=== PATIENT | female | born 2000 | race Caucasian/White ===

== ENCOUNTER 2022-12-10 19:27 | Emergency (ER) | payer MEDICAID, SELFPAY ==
[2022-12-10 19:57] VITALS: BP 130/77; PULSE 92; RESP 16; TEMP 36.3; O2SAT 98; BMI 46.3
--- NOTE | 2022-12-10 19:59 | ED_ITS ---
HPI - URI/Sore Throat General Chief Complaint: Upper Respiratory Symptoms Stated Complaint: sore throat Time Seen by Provider: 12/10/22 19:58 Source: patient, RN notes reviewed and old records reviewed Mode of arrival: ambulatory History of Present Illness HPI Narrative: 22-year-old female with no significant past medical history presenting to the ED complaining of sore throat, chills, subjective fever, mild headache, fatigue x 2 days. Reports pain with swallowing. Denies ear pain, difficulty/inability to swallow, SOB/CP, sick contacts, recent travel MD elicited complaint: fever, cough and sore throat Related Data Previous Rx's Medication Instructions Recorded penicillin V potassium 500 mg 500 mg PO BID 10 days #20 tabs 12/10/22 tablet Allergies Allergy/AdvReac Type Severity Reaction Status Date / Time No Known Allergies Allergy Verified 12/10/22 19:57 Review of Systems Review of Systems: Constitutional: +subj Fever, No Chills ENT/Mouth: No Ear Pain, No Nasal Congestion, No Sinus Pain, No Hoarseness, + so re throat, + Rhinorrhea, No Swallowing Difficulty Cardiovascular: No Chest Pain, No SOB Respiratory: + Cough, No Sputum, No Wheezing Gastrointestinal: No Nausea, No Vomiting, No Diarrhea, No Constipation, No Abdominal pain Genitourinary: No Dysuria, No Urinary Frequency, No Flank Pain Musculoskeletal: No joint pain, No Myalgias, No Joint Swelling Skin: No Skin Lesions, No rash Neuro: No Weakness Yes all other systems are reviewed and are negative Constitutional: Constitutional: Reports as per [facility] Past Medical History Attestation statement: The following information was validated with the patient. Source: old records reviewed Social History Social History Advance Directives: No Advance Directives Information Provided: No Physical Exam Vital Signs: Vital Signs: Last Vital Signs Temp 97.4 F 12/10/22 19:57 Pulse 92 12/10/22 19:57 Resp 16 12/10/22 19:57 BP 130/77 12/10/22 19:57 Pulse Ox 98 12/10/22 19:57 O2 Del Method Room Air 12/10/22 19:57 BMI result Body Mass Index 46.3 Const: General: cooperative, healthy appearing and no acute distress Orientation/consciousness: patient oriented x3 Limitations: no limitations HEENT: Head: Yes normal to inspection and Yes atraumatic Ears: hearing grossly normal bilaterally, external ears normal, TM's normal bilaterally and mastoids normal General nose exam: Normal external nose present Face and sinus: Yes normal facial exam Throat: Yes uvula midline, Yes abnormal tonsil (+ exudates), No peritonsillar mass, Yes posterior oropharynx abnormal (Erythematous), No uvula laterally displaced and No uvular edema Eyes: General: appearance normal, both eyes and all related structures EOM: EOMs intact bilaterally Neck: Neck: Yes normal visual inspection and Yes no meningeal signs Resp: Effort & Inspection: normal respiratory effort, no respiratory distress and no stridor Auscultation: clear to auscultation bilaterally Cardio: Rate: regular rate Heart sounds: S1 normal heart sound present and S2 normal heart sound present Skin: Rashes: no rashes Wounds: no wounds Neuro: General: patient oriented x3, tone normal and no meningeal signs Gait exam (Neuro): Normal gait present Extrem: General: Yes normal to inspection Course Course Course Narrative: -2029--COVID/flu and rapid strep negative > although patient clinically with strep pharyngitis will treat with antibiotics Results discussed with patient including worrisome signs and symptoms and strict return precautions, and when to return to the emergency department. They verbalized understanding and feel safe for discharge at this time. Medical Decision Making Medical Decision Making [facility] Narrative: 22-year-old female with no significant past medical history presenting to the ED complaining of sore throat, chills, subjective fever, mild headache, fatigue x 2 days. On exam vital signs stable, NAD, nontoxic appearing, posterior oropharynx mildly erythematous, with tonsillar exudates noted. Uvula midline, no evidence of [employer]. Handling secretions, talking in complete sentences. Concern for strep pharyngitis vs viral syndrome. No evidence of [employer], otitis, mastoiditis Plan: COVID/flu, rapid strep Please refer to course for remaining clinical decision making, interpretation of labs/imaging results, and discussions with consultants and/or family members. Differential Diagnosis Differential Diagnoses: The differential diagnosis associated with the presentation includes As above Admission/Observation Consideration of admission/observation: Escalation of care including admission/observation considered Lab Data [facility] Lab Attestation statement: I reviewed the patient's lab results. Labs: Lab Results 12/10/22 12/10/22 12/10/22 Range/Units 20:00 20:00 20:00 COVID-19 ([place]) Negative (Negative) COVID-19 Clin Com See Note Influenza Type A (DON) Negative (Negative) Influenza Type B (DON) Negative (Negative) Influenza A & B Note See Note S. pyogenes GrpA DON Negative (Negative) External Record Review External record reviewed: Inpatient record, Office record, Outpatient record, Prior outpatient labs, Prior outpatient radiology, Primary care record and Outside ED record Tests considered The following testing was considered but not selected: As above Discharge Plan Discharge Clinical Impression: Pharyngitis Patient Disposition: Home, Self-Care Instructions: Pharyngitis (ED) Additional Instructions: You tested negative for strep throat, COVID, and flu, however clinically have strep pharyngitis. Penicillin is an antibiotic please take as prescribed Gargle with warm salt water Take Tylenol Motrin If symptoms persist or worsen return to the ED Prescriptions: New penicillin V potassium 500 mg tablet 500 mg PO BID 10 Days Qty: 20 0RF Referrals: Physician,Unknown J [Primary Care Provider] -
[2022-12-10 20:17] LABS: IDNOW Serial# 08D9AD1C; Strep A Nucleic Acid Negative (Negative)
[2022-12-10 20:21] LABS: COVID-19 Test Negative (Negative); IDNOW Serial# BCCEAD1C
[2022-12-10 20:28] LABS: IDNOW Serial# 55D5AD1C; Influenza A Negative (Negative); Influenza B2 Negative (Negative)
== END 2022-12-10 20:44 | disposition home or self-care (01) ==
PROVIDERS: Physician Assistant; Emergency Provider Emergency Medicine
DX: J02.9 Acute pharyngitis, unspecified (principal); R51.9 Headache, unspecified; R53.83 Other fatigue; Z20.822 Contact with and (suspected) exposure to COVID-19
CPT/HCPCS: 87502; 87635; 87651; 99282; 99283